=== PATIENT | male | born 1985 | race Caucasian/White ===

== ENCOUNTER → 2020-11-04 | Outpatient (CLI) | payer OTHER ==
[2020-11-04 08:29] LABS: BASO # 0.05 (0.02-0.10); EOS # 0.17 (0.04-0.40); EOS % 2.2 % (0.0-4.0); HEMATOCRIT 59.4 % (42.0-52.0); HEMOGLOBIN 19.1 g/dL (13.5-18.0); LYMPH# 2.21 (1.50-4.00); MEAN CELL VOLUME 94 fl (78-100); MEAN CORPUSCULAR HEMOGLOBIN 30 pg (27-31); MEAN CORPUSCULAR HGB CONC 32 g/dL (33-37); MEAN PLATELET VOLUME 10.5 fl (7.4-10.4); MONO # 0.64 (0.20-0.80); NEU # 4.73 (1.40-6.50); PLATELET COUNT 187 K/mm3 (130-400); RED BLOOD COUNT 6.34 M/mm3 (4.20-5.60); WHITE BLOOD COUNT 7.8 K/mm3 (4.8-10.8)
[2020-11-04 08:31] LABS: POTASSIUM 5.2 mmol/L (3.5-5.1)
[2020-11-04 08:32] LABS: ALBUMIN 4.3 g/dL (3.5-5.0)
[2020-11-04 08:33] LABS: CALCIUM 9.9 mg/dL (8.3-10.5)
[2020-11-04 08:34] LABS: TOTAL PROTEIN 7.6 g/dL (6.4-8.3)
[2020-11-04 08:36] LABS: TOTAL BILIRUBIN 0.8 mg/dL (0.2-1.2)
== END ==
LOC: LAB 08:11
PROVIDERS: Physician Assistant
DX: Z00.00 Encounter for general adult medical examination without abnormal findings (principal); E78.5 Hyperlipidemia, unspecified; Z83.3 Family history of diabetes mellitus

== ENCOUNTER → 2024-05-01 | Outpatient (CLI) | payer BC ==
[2024-05-01 08:14] LABS: BASO # 0.02 K/mm3 (0.02-0.10); EOS # 0.09 K/mm3 (0.04-0.40); EOS % 1.7 % (0.0-4.0); HEMATOCRIT 48.9 % (42.0-52.0); HEMOGLOBIN 16.2 g/dL (13.5-18.0); LYMPH# 2.49 K/mm3 (1.50-4.00); MEAN CELL VOLUME 89 fl (78-100); MEAN CORPUSCULAR HEMOGLOBIN 30 pg (27-31); MEAN CORPUSCULAR HGB CONC 33 g/dL (33-37); MEAN PLATELET VOLUME 10.6 fl (7.4-10.4); MONO # 0.43 K/mm3 (0.20-0.80); NEU # 2.18 K/mm3 (1.40-6.50); PLATELET COUNT 162 K/mm3 (130-400); RED BLOOD COUNT 5.47 M/mm3 (4.20-5.60); RED CELL DISTRIBUTION WIDTH 12.2 % (11.5-14.5); WHITE BLOOD COUNT 5.2 K/mm3 (4.8-10.8)
[2024-05-01 08:16] LABS: ALBUMIN 4.1 g/dL (3.5-5.0)
[2024-05-01 08:18] LABS: CALCIUM 9.3 mg/dL (8.3-10.5)
[2024-05-01 08:19] LABS: TOTAL PROTEIN 7.5 g/dL (6.4-8.3)
[2024-05-01 08:21] LABS: TOTAL BILIRUBIN 0.6 mg/dL (0.2-1.2)
== END ==
LOC: LAB 07:38
PROVIDERS: Physician Assistant
DX: Z12.39 Encounter for other screening for malignant neoplasm of breast (principal); E11.9 Type 2 diabetes mellitus without complications; K90.9 Intestinal malabsorption, unspecified